=== PATIENT | female | born 1960 | race Caucasian/White ===

== ENCOUNTER → 2016-10-22 | Outpatient (CLI) | payer BC ==
--- NOTE | 2016-10-22 13:04 | MAMMOGRAPHY REPORT ---
BILATERAL DIGITAL DIAGNOSTIC MAMMOGRAM TOMOSYNTHESIS WITH CAD AND TARGETED RIGHT ULTRASOUND: 7 CLINICAL HISTORY: Annual bilateral mammography. Also following up a benign-appearing isoechoic mass in the 1:00 right breast. TECHNIQUE: Bilateral CC and MLO 2-D digital and tomosynthesis images were obtained. Current study w as also evaluated with a Computer Aided Detection (CAD) system. COMPARISON: Comparison is made to exams dated: 04/22/2016 ultrasound, 04/22/2016 mammogram, 6 ultrasound, 10/16/2015 mammogram, 03/26/2015 ultrasound, and 03/26/2015 mammogram - [facility]. BREAST COMPOSITION: The tissue of both breasts is heterogeneously dense, which may obscure small mas ses. FINDINGS: The asymmetry seen in the anterior retroareolar right breast on the cc view performed 08/31 is no longer identified. There is a nodular asymmetry in the superior middle one third of the right breast on the MLO view that appears very similar to the 08/31/2014 and 08/20/2012 mammograms, s uggesting benignity. No new suspicious mass, architectural distortion or cluster of suspicious micro calcifications is seen bilaterally. Repeat targeted ultrasound was performed in the 1:00 right breast to reevaluate the isoechoic benign appearing mass and also throughout the remainder of the superior right breast to evaluate for the regina mographic asymmetry. In the 1:00 right breast, 1 cm from the nipple, there is a parallel lobulated i soechoic mass with a few internal cystic areas measuring 8.6 x 3.9 x 8.9 mm. Given slight difference s in measuring technique this is considered stable dating back to 03/26/2015 at which time it measure d 8.6 x 3.4 x 10.1 mm. Another six-month follow-up targeted ultrasound will ensure 2 years of stabil ity to confirm benignity. Throughout the remainder of the superior right breast, normal fibroglandular tissue is seen. There i s one area in the 11:00 right breast, 2 cm from the nipple that has the appearance of a collapsing cy st measuring 5.9 x 2.3 x 7.0 mm. This is thought to be incidental. IMPRESSION: ACR-BI-RADS CATEGORY 3: PROBABLY BENIGN, TARGETED ULTRASOUND ACR-BI-RADS CATEGORY 3: PRO BABLY BENIGN 1. There is no mammographic evidence of malignancy bilaterally. An asymmetry is no longer seen in t he anterior right breast. Recommend routine bilateral mammography in one year. 2. Stable sonographic appearance of an isoechoic lobulated parallel mass in the 1:00 right breast. A nother six-month follow-up targeted right breast ultrasound will ensure 2 years of stability to confi rm benignity. These results and recommendations were discussed with the patient at the time of the exam. Approximately 10% of breast cancers are not detected with mammography. A negative mammographic report should not delay biopsy if a clinically suggestive mass is present. Cynthia Hammonds M.D. ay/:10/22/2016 12:13:16 Wet Chemistry Analyst: Brionna LAI(R)(M), [facility] letter sent: Follow Up Recommended 3 BI-RADS Code: ACR-BI-RADS Category 3: Probably Benign Ultrasound BI-RADS: ACR-BI-RADS Category 3: Pr obably Benign
== END | disposition home or self-care (01) ==
LOC: C.MAMM 10:45
PROVIDERS: ATTEND Obstetrics & Gynecology
DX: N63 Unspecified lump in breast (principal)

== ENCOUNTER → 2017-04-23 | Outpatient (CLI) | payer BC ==
--- NOTE | 2017-04-23 13:45 | MAMMOGRAPHY REPORT ---
ULTRASOUND OF RIGHT BREAST: 04/23/2017 CLINICAL HISTORY: Six-month follow-up of a right breast mass seen on ultrasound. The patient reports no current complaints. COMPARISON: Comparison is made to exams dated: 10/22/2016 ultrasound, 10/22/2016 mammogram, 04/22/2016 ultrasound, 04/22/2016 mammogram, 10/16/2015 ultrasound, and 10/16/2015 mammogram - [facility]. TECHNIQUE: Real-time targeted ultrasound of the right breast was performed. FINDINGS: Real-time, high resolution targeted ultrasound was performed of the area of the previously seen right breast mass for which follow-up was recommended. In the right breast at 1:00, 1 cm from the nipple, there is an isoechoic parallel benign-appearing mass with a few internal cystic areas. T he mass is stable in size and appearance dating back to the February 2015 exam, currently measuring 9 x 4 x 9 mm, previously measuring 9 x 3 x 10 mm on the February 2015 exam. Given the long-term stabi lity and benign morphology, the mass is considered benign. IMPRESSION: ACR BI-RADS CATEGORY 2: BENIGN The isoechoic benign-appearing 9 mm mass in the right 1:00 breast is stable on ultrasound dating back to February 2015, and is considered benign given the long-term stability and benign morphology. The re is no sonographic evidence of malignancy. Return to annual mammogram screening schedule is recomm ended, due September 2017. The patient was verbally notified of the results. Venus Piña M.D. /:04/23/2017 11:05:55 Lumber Press Operator: Venus Piña MD, [facility] letter sent: Normal 1/2 BI-RADS Code: ACR BI-RADS Category 2: Benign
== END | disposition home or self-care (01) ==
LOC: C.MAMM 10:49
PROVIDERS: ATTEND Obstetrics & Gynecology
DX: N63.10 Unspecified lump in the right breast, unspecified quadrant (principal)

== ENCOUNTER → 2017-11-17 | Outpatient (CLI) | payer BC | END | disposition home or self-care (01) | LOC: C.PAPS 15:06 | PROVIDERS: ATTEND Obstetrics & Gynecology | DX: Z01.419 Encounter for gynecological examination (general) (routine) without abnormal findings (principal) ==